=== PATIENT | male | born 1975 | race Caucasian/White ===

== ENCOUNTER 2016-06-23 16:11 | Emergency (ER) | payer SELFPAY ==
[~2016-06-23] VITALS: Ht 182.9 cm; Wt 97.5 kg
--- OUTSIDE RECORDS SUMMARY | 2016-06-23 16:15 | XMS REPORT ---
Author Author Randall Kovacs [facility] [address] [place] Address [address] [place], [place] [address] Care Team Providers Care Quilt Sewer Name Role Phone Randall Kovacs Unavailable [phone] PROBLEMS Type Condition ICD9-CM Code [id number] Code Onset Dates Condition Status SNOMED Code Problem Type 2 diabetes mellitus without complication, unspecified jail insulin use status E11.9 Active 691174852 Problem Tobacco abuse Z72.0 Active 35083624 Assessment Back pain M54.9 Apr, Active 178633347 Problem Polysubstance abuse F19.10 Active 492935315 Problem Back pain M54.9 Active 490951255 ALLERGIES Substance Reaction Event Type Date Status Reglan Unknown Drug Allergy Apr, Active SOCIAL HISTORY No smoking Hx information available PLAN OF CARE VITAL SIGNS Height 73.2 in 2016-04-06 Weight 207 lbs 2016-04-06 Temperature 98.7 degrees Fahrenheit 2016-04-06 Heart Rate 90 /min 2016-04-06 Respiratory Rate 16 /min 2016-04-06 BMI 27.16 kg/m2 2016-04-06 Blood pressure systolic 144 mm Hg 2016-04-06 Blood pressure diastolic 100 mm Hg 2016-04-06 MEDICATIONS Medication Instructions Dosage Frequency Start Date End Date Duration Status Zyprexa 10 MG Orally Once a day 1 tablet 24h Active Indomethacin 50 MG Orally Twice a day 1 capsule with food or milk 12h Mar, 30 day(s) Active BuSpar 10 MG Orally Twice a day 1 tablet 12h Active Metformin HCl 500 MG Orally Twice a day 1 tablet with meals h Apr, 30 day(s) Active Lortab 5-325 MG 2 tablet as needed Active RESULTS No Results PROCEDURES Procedure Date Ordered Related Diagnosis Body Site Office Visit, Est Pt., Level 4 April 06, 2016 IMMUNIZATIONS No Known Immunizations
--- OUTSIDE RECORDS SUMMARY | 2016-06-23 16:15 | XMS REPORT ---
Author Author Teodoro Mcclure Organization [employer] Address Unknown Phone Unavailable Care Team Providers Care Wind Instrument Repairer Name Role Phone Teodoro Mcclure CP Unavailable Allergies No Known Allergies Problems No Known Problems Medications No Known Medications Results No Known Results Summary Purpose [employer] Submission
--- OUTSIDE RECORDS SUMMARY | 2016-06-23 16:15 | XMS REPORT | Referral Summary ---
Author Author [facility] Organization [facility] Address Unknown Phone Unavailable Care Team Providers Care Drapery Cutter Name Role Phone No PCP, Pt States Primary Care Physician [phone] Encounter VC Date(s): 11/16/15 - 11/16/15 [facility] [address] [place], [place] [address] Discharge Diagnosis: HTN (hypertension) Discharge Diagnosis: Jaw fracture Discharge Diagnosis: Methamphetamine use Discharge Diagnosis: Jaw pain Discharge Disposition: 01-Home or Self Care Attending Physician: Jesus Peace MD Admitting Physician: Jesus Peace MD Vital Signs Most recent to 1 oldest [Reference Range]: Temperature Temporal 36.4 degC Artery [36.3-37.8 (11/16/15 9:21 PM) degC] Peripheral Pulse 112 bpm Rate [60-100 bpm] *HI* (11/16/15 9:21 PM) Respiratory Rate 14 br/min [14-20 br/min] (11/16/15 9:21 PM) Blood Pressure 162/117 mmHg [90-140/60-90 mmHg] *HI* (11/16/15 9:21 PM) SpO2 97 % (11/16/15 9:21 PM) Problem List Condition Effective Dates Status Health Status Informant Acute Active pain(Confirmed) At risk for unstable Active blood glucose level(Confirmed)1 Tendon Avulsion Rt 09/12/07 Active Little Finger DIP Joint(Confirmed)2 Bipolar(Confirmed) Active patient Bronchitis(Confirmed Active ) Diabetes(Confirmed) Active patient Hypertension(Confirm Active patient ed) Ineffective coping Active (individual)(Confirm ed)3 Mallet Finger Active Congiguration, Rt Little Finger(Confirmed) PTSD(Confirmed) Active patient 1Problem added automatically by system based on initiation of At Risk for Unstable Blood Glucose Plan of Care 2Home 3Problem added automatically by system based on initiation of Ineffective Coping Plan of Care Allergies, Adverse Reactions, Alerts Substance Reaction Severity Status Reglan Unknown Active Medications CeleXA 20 mg oral tablet 1 tabs, Oral, Daily, 0 Refill(s) Start Date: 10/17/13 Status: Ordered cephalexin 500 mg oral tablet 500 mg 1 tabs, Oral, QID, X 7 days, # 28 tabs, 0 Refill(s) Start Date: 11/16/15 Stop Date: 11/23/15 Status: Ordered ibuprofen 600 mg oral tablet 600 mg 1 tabs, Oral, QID, # 20 tabs, 0 Refill(s) Start Date: 11/16/15 Status: Ordered insulin lispro 10 units, SubCutaneous, TIDAC, 0 Refill(s) Start Date: 10/17/13 Status: Ordered lisinopril 10 mg oral tablet 1 tabs, Oral, Daily, 0 Refill(s) Start Date: 10/17/13 Status: Ordered lisinopril 20 mg oral tablet 20 mg 1 tabs, Oral, Daily, # 30 tabs, 0 Refill(s) Start Date: 11/16/15 Status: Ordered metFORMIN 500 mg oral tablet 2 tabs, Oral, With BKFT and Dinner, 0 Refill(s) Start Date: 10/17/13 Status: Ordered [place] 5 mg-325 mg oral tablet 1 tabs, Oral, q6hr, as needed for pain, X 4 days, # 16 tabs, 0 Refill(s) Start Date: 11/14/15 Stop Date: 11/18/15 Status: Ordered SEROquel 100 mg oral tablet 1 tabs, Oral, Bedtime (once a day), 0 Refill(s) Start Date: 10/17/13 Status: Ordered SEROquel 50 mg oral tablet 1 tabs, Oral, qAM, Agitation, 0 Refill(s) Start Date: 10/17/13 Status: Ordered Results Chemistry Most recent to 1 oldest [Reference Range]: Blood Glucose, 106 mg/dL Capillary [70-100 *HI* mg/dL] (11/16/15 9:27 PM) Immunizations No data available for this section Procedures Procedure Date Related Diagnosis Body Site L5-S1 Back Surgery 08/28/06 Hernia Hernia Lumbar spinal fusion Social History Social History Type Response Smoking Status Current every day smoker Assessment and Plan No data available for this section
--- OUTSIDE RECORDS SUMMARY | 2016-06-23 16:15 | XMS REPORT ---
Author Author Nayan Velazquez [facility] [place] Address [address] [place] [address] Care Team Providers Care Photo Lab Manager Name Role Phone Nayan Velazquez Unavailable [phone] PROBLEMS Type Condition ICD9-CM Code OPP93-RX Code Onset Dates Condition Status SNOMED Code Problem Tobacco abuse Z72.0 Active 36131535 Problem Polysubstance abuse F19.10 Active 963614178 Problem Back pain M54.9 Active 944715388 ALLERGIES Unknown Allergies SOCIAL HISTORY No smoking Hx information available PLAN OF CARE VITAL SIGNS MEDICATIONS Unknown Medications RESULTS No Results PROCEDURES No Known procedures IMMUNIZATIONS No Known Immunizations
--- OUTSIDE RECORDS SUMMARY | 2016-06-23 16:15 | XMS REPORT ---
Author Author Nayan Velazquez [facility] [place] Address [address] [place] [address] Care Team Providers Care Lead Data Entry Operator Name Role Phone Naayn Velazquez Unavailable [phone] PROBLEMS Type Condition ICD9-CM Code UQT29-BW Code Onset Dates Condition Status SNOMED Code Problem Tobacco abuse Z72.0 Active 40666740 Problem Polysubstance abuse F19.10 Active 216859138 Problem Back pain M54.9 Active 063830365 ALLERGIES Unknown Allergies SOCIAL HISTORY No smoking Hx information available PLAN OF CARE VITAL SIGNS MEDICATIONS Unknown Medications RESULTS No Results PROCEDURES No Known procedures IMMUNIZATIONS No Known Immunizations
--- OUTSIDE RECORDS SUMMARY | 2016-06-23 16:15 | XMS REPORT ---
Author Author Teodoro Mcclure Organization [employer] Address Unknown Phone Unavailable Care Team Providers Care Electric Blanket Packer Name Role Phone Teodoro Mcclure CP Unavailable Allergies No Known Allergies Problems No Known Problems Medications No Known Medications Results No Known Results Summary Purpose [employer]Clinical[employer] Submission
--- OUTSIDE RECORDS SUMMARY | 2016-06-23 16:16 | XMS REPORT ---
Author Author Nayan Velazquez [facility] [address] [place] Address [address] [place] [address] Care Team Providers Care General Road Supervisor Name Role Phone Nayan Velazquez Unavailable [phone] PROBLEMS Type Condition ICD9-CM Code PEE63-MV Code Onset Dates Condition Status SNOMED Code Problem Insomnia G47.00 Active 878120175 Problem Back pain M54.9 Active 416193041 Problem Hypertension I10 Active 54418599 Problem Depression F32.9 Active 039395542 Problem Lumbosacral disc disease M51.9 Active 73661330 Problem Bronchitis J40 Active 06017957 Problem Diabetes mellitus E11.9 Active 69764236 Problem Anxiety F41.9 Active 32677462 Problem Tobacco abuse Z72.0 Active 13468799 Problem Polysubstance abuse F19.10 Active 234438077 Problem Paranoia F22 Active 752495925 Problem Chronic gingivitis, 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
--- OUTSIDE RECORDS SUMMARY | 2016-06-23 16:16 | XMS REPORT | Referral Summary ---
Author Author [facility] Organization [facility] Address Unknown Phone Unavailable Care Team Providers Care Zinc Chloride Operator Name Role Phone No PCP, Pt States Primary Care Physician [phone] Encounter VC IGOR [id number] Date(s): 12/22/15 - 12/22/15 [facility] [address] [place] [address] Discharge Diagnosis: Contusion of left leg Discharge Disposition: 01-Home or Self Care Attending Physician: Gage Cisneros MD Admitting Physician: Gage Cisneros MD Vital Signs Most recent to 1 oldest [Reference Range]: Temperature Oral 36.8 degC [35.8-37.3 degC] (12/22/15 10:35 AM) Peripheral Pulse 109 bpm Rate [60-100 bpm] *HI* (12/22/15 12:14 PM) Respiratory Rate 20 br/min [14-20 br/min] (12/22/15 12:14 PM) Blood Pressure 156/115 mmHg [90-140/60-90 mmHg] *HI* (12/22/15 12:14 PM) SpO2 100 % (12/22/15 12:14 PM) Problem List Condition Effective Dates Status [...] 0 Refill(s) Start Date: 10/17/13 Status: Ordered ibuprofen 600 mg oral tablet 600 mg 1 tabs, Oral, QID, # 20 tabs, 0 Refill(s) Start Date: 11/16/15 Status: Ordered ibuprofen 800 mg oral tablet 800 mg 1 tabs, Oral, q8hr, as needed for pain, X 7 days, # 21 tabs, 0 Refill(s) Start Date: 12/22/15 Stop Date: 12/29/15 Status: Ordered insulin lispro 10 units, SubCutaneous, [...] Refill(s) Start Date: 10/17/13 Status: Ordered SEROquel 100 mg oral tablet 1 tabs, Oral, Bedtime (once a day), 0 Refill(s) Start Date: 10/17/13 Status: Ordered SEROquel 50 mg oral tablet 1 tabs, Oral, qAM, Agitation, 0 Refill(s) Start Date: 10/17/13 Status: Ordered Ultram 50 mg oral tablet 50 mg 1 tabs, Oral, q6hr, as needed for pain, X 5 days, # 12 tabs, 0 Refill(s) Start Date: 12/22/15 Stop Date: 12/27/15 Status: Ordered Results No data available for this section Immunizations No data available for this section Procedures Procedure Date Related Diagnosis Body Site L5-S1 Back Surgery 08/28/06 Hernia Hernia Lumbar spinal fusion Social History Social History Type Response Smoking Status Current every day smoker Assessment and Plan No data available for this section
--- OUTSIDE RECORDS SUMMARY | 2016-06-23 16:16 | XMS REPORT ---
Author Author Teodoro Mcclure Organization [employer] Address Unknown Phone Unavailable Care Team Providers Care Centralized Traffic Control Operator Name Role Phone Teodoro Mcclure CP Unavailable Allergies No Known Allergies Problems No Known Problems Medications No Known Medications Results No Known Results Summary Purpose [employer] Submission
--- OUTSIDE RECORDS SUMMARY | 2016-06-23 16:16 | XMS REPORT | Referral Summary ---
Author Author [facility] Organization [facility] Address Unknown Phone Unavailable Care Team Providers Care Adjunct Sociology Professor Name Role Phone No PCP, Pt States Primary Care Physician [phone] Encounter VC Date(s): 10/13/15 - 10/13/15 [facility] [address] [place], [place] [address] Discharge Diagnosis: Anxiety Discharge Diagnosis: Methamphetamine use Discharge Disposition: 01-Home or Self Care Attending Physician: Mayela Roman MD Admitting Physician: Mayela Roman MD Vital Signs Most recent to 1 oldest [Reference Range]: Temperature Oral 36.7 degC [35.8-37.3 degC] (10/13/15 11:33 AM) Peripheral Pulse 96 bpm Rate [60-100 bpm] (10/13/15 11:33 AM) Respiratory Rate 18 br/min [14-20 br/min] (10/13/15 11:33 AM) Blood Pressure 167/98 mmHg [90-140/60-90 mmHg] *HI* (10/13/15 11:33 AM) SpO2 96 % (10/13/15 11:33 AM) Problem List Condition Effective Dates Status Health [...] 0 Refill(s) Start Date: 10/17/13 Status: Ordered insulin lispro 10 units, SubCutaneous, TIDAC, 0 Refill(s) Start Date: 10/17/13 Status: Ordered lisinopril 10 mg oral tablet 1 tabs, Oral, Daily, 0 Refill(s) Start Date: 10/17/13 Status: Ordered metFORMIN 500 mg oral tablet 2 tabs, Oral, With BKFT and Dinner, 0 Refill(s) Start Date: 10/17/13 Status: Ordered SEROquel 100 mg oral tablet 1 tabs, Oral, Bedtime (once a day), 0 Refill(s) Start Date: 10/17/13 Status: Ordered SEROquel 50 mg oral tablet 1 tabs, Oral, qAM, Agitation, 0 Refill(s) Start Date: 10/17/13 Status: Ordered Results No data available for this section Immunizations No data available for this section Procedures Procedure Date Related Diagnosis Body Site L5-S1 Back Surgery 08/28/06 Hernia Hernia Lumbar spinal fusion Social History Social History Type Response Smoking Status Current every day smoker; Type: Cigarettes; Tobacco use per day: Less than Pack Assessment and Plan No data available for this section
--- OUTSIDE RECORDS SUMMARY | 2016-06-23 16:17 | XMS REPORT ---
Author Author Nayan Velazquez [facility] [place] Address [address] [place] [address] Care Team Providers Care Project Technician Name Role Phone Nayan Velazquez Unavailable [phone] PROBLEMS Type Condition ICD9-CM Code QBT35-FR Code Onset Dates Condition Status SNOMED Code Problem Tobacco abuse Z72.0 Active 83983024 Problem Polysubstance abuse F19.10 Active 792511815 Problem Back pain M54.9 Active 465196578 Assessment Back pain M54.9 Mar, Active 845659252 ALLERGIES Unknown Allergies SOCIAL HISTORY No smoking Hx information available PLAN OF CARE VITAL SIGNS MEDICATIONS Medication Instructions Dosage Frequency Start Date End Date Duration Status Lortab 5-325 MG 2 tablet as needed Active Clindamycin HCl 300 MG Orally every 8 hrs 1 capsule 8h Mar, 5 day(s) Active Amoxicillin 500 MG Orally Three a day 1 tablet Active Indomethacin 50 MG Orally Twice a day 1 capsule with food or milk 12h Mar, 30 day(s) Active Mobic 15 MG Orally Once a day 1 tablet 24h 30 days Active RESULTS No Results PROCEDURES No Known procedures IMMUNIZATIONS No Known Immunizations
--- OUTSIDE RECORDS SUMMARY | 2016-06-23 16:17 | XMS REPORT | Referral Summary ---
Author Organization Unknown Address Unknown Phone Unavailable Care Team Providers Care Transmission Tester Name Role Phone No PCP, [facility] Primary Care Physician [phone] Encounter VC Date(s): 03/11/14 - 03/11/[id number] [place] [address] Discharge Diagnosis: Exposure to STD Discharge Disposition: Home or Self Care Attending Physician: Jesus Peace MD Admitting Physician: Jesus Peace MD Vital Signs Most recent to 1 oldest [Reference Range]: Temperature Oral 37.2 degC [35.8-37.3 degC] (03/11/14 1:36 PM) Peripheral Pulse 92 bpm Rate [60-100 bpm] (03/11/14 2:11 PM) Respiratory Rate 20 br/min [14-20 br/min] (03/11/14 1:36 PM) Blood Pressure 138/102 mmHg [90-140/60-90 mmHg] (03/11/14 2:11 PM) Most recent to 1 oldest [Reference Range]: SpO2 97 % (03/11/14 1:36 PM) Problem List Condition Effective Dates Status Health Status Informant Acute Active pain(Confirmed) At risk for unstable Active blood glucose level(Confirmed)1 Bipolar(Confirmed) Active patient Diabetes(Confirmed) Active patient Hypertension(Confirm Active patient ed) Ineffective coping Active (individual)(Confirm ed)2 PTSD(Confirmed) Active patient 1Problem added automatically by system based on initiation of At Risk for Unstable Blood Glucose Plan of Care 2Problem added automatically by system based on initiation of Ineffective Coping Plan of Care Allergies, Adverse Reactions, Alerts No Known Medication Allergies Medications CeleXA 20 mg oral tablet 1 tabs, Oral, Daily, 0 Refill(s) Start Date: 10/17/13 Status: Ordered Flagyl 500 mg oral tablet 1 tabs, Oral, q8hr, X 7 days, # 21 tabs, 0 Refill(s) Start Date: 03/11/14 Stop Date: 03/18/14 Status: Ordered insulin lispro 10 units, SubCutaneous, [...] Procedures Procedure Date Related Diagnosis Body Site Hernia Lumbar spinal fusion Social History Social History Type Response Smoking Status Current every day smoker; Type: Cigarettes; Tobacco use per day: Less than Pack Assessment and Plan No data available for this section
--- OUTSIDE RECORDS SUMMARY | 2016-06-23 16:17 | XMS REPORT ---
Author Author Teodoro Mcclure Organization [employer] Address Unknown Phone Unavailable Care Team Providers Care Public Safety Officer Name Role Phone Teodoro Mcclure CP Unavailable Allergies No Known Allergies Problems No Known Problems Medications No Known Medications Results No Known Results Summary Purpose eClinicalWorks Submission
--- OUTSIDE RECORDS SUMMARY | 2016-06-23 16:17 | XMS REPORT ---
Author Author Nayan Velazquez [facility] [place] Address [address] [place] [address] Care Team Providers Care Residence Life Coordinator Name Role Phone Nayan Velazquez Unavailable [phone] PROBLEMS Type Condition ICD9-CM Code ZAT08-KI Code Onset Dates Condition Status SNOMED Code Problem Back pain M54.9 Active 662130885 Assessment Lumbago M54.5 Apr, Active 541007351 Problem Diabetes mellitus E11.9 Active 90506709 Problem Anxiety F41.9 Active 47025698 Problem Tobacco abuse Z72.0 Active 39472230 Problem Polysubstance abuse F19.10 Active 979948838 Problem Paranoia F22 Active 922040628 Problem Chronic gingivitis, 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 Active 893832622 ALLERGIES Substance Reaction Event Type Date Status Reglan Unknown Drug Allergy Apr, Active SOCIAL HISTORY No smoking Hx information available PLAN OF CARE VITAL SIGNS Height 73.2 in 2016-04-20 Weight 206 lbs 2016-04-20 Temperature 97.0 degrees Fahrenheit 2016-04-20 Heart Rate 70 /min 2016-04-20 Respiratory Rate 16 /min 2016-04-20 BMI 27.03 kg/m2 2016-04-20 Blood pressure systolic 134 mm Hg 2016-04-20 Blood pressure diastolic 80 mm Hg 2016-04-20 MEDICATIONS Medication Instructions Dosage Frequency Start Date End Date Duration Status Indomethacin 50 MG Orally Twice a day 1 capsule with food or milk 12h Mar, 30 day(s) Active BuSpar 10 MG Orally Twice a day 1 tablet 12h 90 days Active Metformin HCl 500 MG Orally Twice a day 1 tablet with meals 12h Apr, 90 days Active Zyprexa 10 MG Orally Once a day 1 tablet 24h Active RESULTS No Results PROCEDURES Procedure Date Ordered Related Diagnosis Body Site Office Visit, Est Pt., Level 4 April 20, 2016 IMMUNIZATIONS No Known Immunizations
--- OUTSIDE RECORDS SUMMARY | 2016-06-23 16:17 | XMS REPORT | Referral Summary ---
Author Author [facility] Organization [facility] Address Unknown Phone Unavailable Care Team Providers Care Hand Clipper Name Role Phone No PCP, Pt States Primary Care Physician [phone] Encounter VC Date(s): 06/01/15 - 06/01/15 [facility] [address] [place], [place] [address] Discharge Diagnosis: Depression Discharge Diagnosis: Methamphetamine abuse Discharge Diagnosis: Suicidal thoughts Discharge Disposition: 01-Home or Self Care Attending Physician: Issa Bolaños MD Admitting Physician: Issa Bolaños MD Vital Signs Most recent to 1 oldest [Reference Range]: Temperature Oral 36.7 degC [35.8-37.3 degC] (06/01/15 3:21 AM) Peripheral Pulse 95 bpm Rate [60-100 bpm] (06/01/15 3:21 AM) Respiratory Rate 16 br/min [14-20 br/min] (06/01/15 3:21 AM) Blood Pressure 164/118 mmHg [90-140/60-90 mmHg] *HI* (06/01/15 3:21 AM) SpO2 97 % (06/01/15 3:21 AM) Problem List Condition Effective Dates Status [...]
--- OUTSIDE RECORDS SUMMARY | 2016-06-23 16:17 | XMS REPORT | Referral Summary ---
Author Author [facility] Organization [facility] Address Unknown Phone Unavailable Care Team Providers Care Junior Architect Name Role Phone No PCP, Pt States Primary Care Physician [phone] Encounter VC Date(s): 11/14/15 - 11/14/15 [facility] [address] [place] [address] [phone] Discharge Diagnosis: Jaw pain Discharge Disposition: 01-Home or Self Care Attending Physician: Gage Cisneros MD Admitting Physician: Gage Cisneros MD Vital Signs Most recent to 1 oldest [Reference Range]: Temperature Temporal 36.3 degC Artery [36.3-37.8 (11/14/15 2:57 PM) degC] Peripheral Pulse 102 bpm Rate [60-100 bpm] *HI* (11/14/15 4:11 PM) Respiratory Rate 16 br/min [14-20 br/min] (11/14/15 4:11 PM) Blood Pressure 164/116 mmHg [90-140/60-90 mmHg] *HI* (11/14/15 4:11 PM) SpO2 98 % (11/14/15 4:11 PM) Problem List Condition Effective Dates Status [...] 0 Refill(s) Start Date: 10/17/13 Status: Ordered [place] 5 mg-325 mg oral tablet 1 tabs, [...]
[2016-06-23 16:20] VITALS: Ht 182.9 cm; Wt 97.5 kg
[2016-06-23] MEDS ORDERED: CLIN300C3 PO (16:41)
[2016-06-23] MEDS ORDERED: NAPR220T61 PO (16:42)
[2016-06-23] MEDS ORDERED: METF500T4 PO (16:43)
[2016-06-23] MEDS ORDERED: PALI117D IM (16:44)
[2016-06-23] MEDS ORDERED: RISP2TAB PO (16:45)
[2016-06-23] MEDS ORDERED: MULT-933 PO (16:45)
--- NOTE | 2016-06-23 16:53 | ERPDOC ---
Departure Disposition Decision Date: June 23, 2016 Disposition Decision Time: 16:50 Disposition: 01 DISCHARGED HOME, SELF-CARE Impression Impression Impression: Primary Impression: URI (upper respiratory infection) URI type: unspecified viral URI Qualified Codes: B97.89 - Other viral agents as the cause of diseases classified elsewhere; J06.9 - Acute upper respiratory infection, unspecified Additional Impressions: Hypertension Hypertension type: essential hypertension Qualified Codes: I10 - Essential ( primary) hypertension Headache Headache type: tension-type Headache chronicity pattern: acute headache Intractability: intractable Qualified Codes: G44.201 - Tension-type headache , unspecified, intractable Severity: Moderate Condition: Improved Seen By: Physician only Referrals: [facility] 1 Week Patient Instructions: Upper Respiratory Infection (ED) Problems/Meds/Labs Reviewed?: Yes Medications reviewed and manag: Yes Additional Instructions: You have an upper respiratory infection (a cold). Use the Afrin twice daily for the next 3 days to help your ears drain. Take dayquil and nyquil (or benadryl, 50mg at bedtime) to help with your symptoms. Drink plenty of water. Take the lisinopril as directed. Follow up with your doctor or [facility] in the next week or so. Follow up care ordered?: Yes Mental Status: Alert, Oriented Scripts Lisinopril (Lisinopril) 40 Mg Tablet 40 MG PO DAILY for HYPERTENSION for 30 Days, #30 TAB Prov: JUNE,CLAUDIO Thomas DO 06/23/16 HPI - Cough/URI General Chief Complaint: Headache Stated Complaint: BAD HEADACHE,STABBING FEELING LEFT EAR Time Seen by Provider: 16:42 Source: patient Exam Limitations: no limitations HPI - Cough/URI Initial Comments 40yo man presents to the ER with a MARIE. Pt had abrupt onset of rhinorrhea, congestion, and b/l ear pain 3 hours ago. Pt took some naproxen with minimal relief, but the MARIE came on shortly thereafter. Pt has been taking clindamycin for the last week for a dental abscess; is under the care of a dentist for this. Requests refill of his lisinopril 40mg for HTN. Allergies: Coded Allergies: metoclopramide (Verified Allergy, Unknown, 06/23/16) Past History Past Medical History Metabolic: diabetes, hypertension Psychological: alcohol abuse, drug abuse Review of Systems ENMT Ears: pain Sinuses: congestion, rhinorrhea Mouth/Throat: sore throat Pulmonary Respiratory: cough Neurological General: headache All other Systems All Other Systems: Reviewed and Negative Physical Exam General General Nourishment: well nourished, well developed, appears stated age, no acute distress, adult General Body Habitus: well groomed Vitals and Pain First Documented Vital Signs Date Time Temp Pulse Resp B/P Pulse Ox O2 Delivery O2 Flow Rate FiO2 06/23/16 16:20 98.3 97 18 158/99 95 Room Air Weight: Kilograms: Height (feet): Height (inches): Triage Pain Scale: RN VS reviewed by Provider: Yes Eyes (brief) Eyes Brief: found: EOMI, PERRL, not found: scleral icterus ENMT (brief) ENMT Brief: FOUND: TM good light reflex, ear canals clear, mucosa moist, nasal exudate, normal tonsils, pharnyx erythema, NOT FOUND: TM clear (B/l bulging with clear fluid) Neck (brief) Neck: FOUND: adenopathy (Anterior left auricular), trachea midline, NOT FOUND: JVD, thyromegaly Respiratory (brief) Respiratory: FOUND: clear all esquivel, equal bilaterally, symmetrical, NOT FOUND : rales, wheezes Cardiovascular (brief) Cardiac: FOUND: regular rate, regular rhythm, NOT FOUND: click, gallop, murmur , pedal edema, peripheral edema, rub Capillary Refill: <2 sec Pulses: all distal extremities, equal, strong Lymphatic (brief) Lymphatic Brief: FOUND: adenopathy, NOT FOUND: lymphedema Musculoskeletal (brief) Musculoskeletal Brief: NOT FOUND: deformity, loss of motion, spasm, tenderness Integumentary (brief) Integumentary Brief: FOUND: pink, warm Neurologic (brief) Neurological Brief: FOUND: CN w/o gross def to obs, DTR 2/4 all extremities, gait w/o gross def to obs, motor-no gross deficits, sensory-no gross deficits, NOT FOUND: Babinski Psychiatric (brief) Psychiatric Brief: FOUND: alert, normal affect, oriented Differential Diagnoses Differential Diagnoses Considering: Mastoiditis, Pharyngitis, Sinusitis, URI, Viral Syndrome, Other ( Migraine MARIE) Progress Results/Orders Orders Procedure Category Date Status Time Oxymetazoline Nasal PHA 06/23/16 In Process [place] (Afrin Nasal S 17:00 Medications Current ED Medications Oxymetazoline HCl (Afrin Nasal [place]) 2 spray O ONCE EA NOSTRIL ; Start at 17:00; Stop 06/23/16 at 17:01 Progress Progress Pt with new-onset URI sx and bulging TMs with clear fluid. Will treat to decrease upper airway congestion to encourage drainage. Will give recommendations for symptomatic relief. Will refill pts HTN meds, as requested. Pt to f/u with PCM as outpt. Pt voiced understanding of dx, prognosis, tx, and f /u needs. CLAUDIO THOMPSON DO June 23, 2016 16:53
[2016-06-23] MEDS ORDERED: LISI40TA4 PO (16:56)
[2016-06-23] MEDS ORDERED: OXYMETAZOLINE 0.05% NASAL SPRAY 15 ML EA NOSTRIL ONE (17:00)
[2016-06-23 17:10] VITALS: BP 141/82; PULSE 84; RESP 14; TEMP 98.3; O2SAT 97
== END 2016-06-23 17:10 | disposition home or self-care (01) ==
LOC: ED 16:11
DX: J06.9 Acute upper respiratory infection, unspecified (principal); B97.89 Other viral agents as the cause of diseases classified elsewhere; G44.201 Tension-type headache, unspecified, intractable; I10 Essential (primary) hypertension; F17.200 Nicotine dependence, unspecified, uncomplicated

== ENCOUNTER 2016-08-05 13:02 | Inpatient (IN) ==
[2016-08-05] MEDS ORDERED: SALINE FLUSH 10ml SYRINGE IVF PRN (13:11)
[2016-08-05] MEDS ORDERED: ONDANSETRON 4 MG/2 ML INJECTION IVP ONE (14:12)
--- NOTE | 2016-08-05 14:15 | Emergency Department Report ---
Psych HPI - General Chief Complaint: Psychiatric Symptoms <Randall Ibanez - 08/06/16 06:18> Stated Complaint: Suicidal Ideation <Randall Ibanez - 08/06/16 06:18> Time Seen by Provider: 08/05/16 13:05 <Randall Ibanez - 08/06/16 06:18> Source: patient <Alexandra Sewell 08/05/16 20:43> Mode of arrival: EMS <Alexandra Sewell [place] 08/05/16 20:43> Limitations: no limitations <Alexandra Sewell [place] 08/05/16 20:43> - History of Present Illness HPI Narrative: 40 YO M brought to ED by EMS for overdose of metformin. Patient says he took 34, 1000mg tabs of metformin with intent to kill himself. Patient was given activated charcoal by EMS prior to arrival. Patient states that "everything has been going on in his life" and he wanted to ". Sites marital problems. Previous overdose with intent to kill himself earlier this year. Says that he "really has gotten any better" since earlier attempt. Patient reports a frontal headache with sinus congestion and drainage for past 3 -4 days. <Alexandra Sewell [place] 08/05/16 20:43> - Related Data Home Medications Medication Instructions Recorded Confirmed Metformin HCl 1,000 mg PO BIDWM #0 06/23/16 08/05/16 Lisinopril 40 mg PO HS 07/07/16 08/05/16 Paliperidone Sustenna [Invega 234 mg IM 1 MONTH 07/10/16 08/05/16 Sustenna] Acetaminophen 650 mg PO PRN 08/05/16 08/05/16 Insulin Detemir [Levemir] 20 unit SQ HS 08/05/16 08/05/16 <Randall Ibanez - 08/06/16 06:18> Allergies Allergy/AdvReac Type Severity Reaction Status Date / Time metoclopramide Allergy Unknown Anxiety Verified 08/05/16 16:20 <aRndall Ibanez - 08/06/16 06:18> Review of Systems All systems: reviewed and negative except as stated <DonatoAlexadnra A 20:43> Psychiatric: Reports: as per HPI, depression, suicidal thoughts <Alexandra Sewell 08/05/16 20:43> [facility] Patient Stated Medical History Migraine Yes Hypertension Yes Diabetes Mellitus Type 2 Yes Hiatal Hernia Yes Ulcer Yes Other Musculoskeletal Yes: DEGENERATIVE DISC DISEASE Bipolar Disorder Yes Depression Yes Post Traumatic Stress Disorder Yes Substance Use Disorder Yes: MARIJUANA, METH HX <Ira Ibanezk Joni 08/06/16 06:18> Surgical History: Surgery on jaw. Right hand. Low back surgery <Sewell Alexandra 08/05/16 14:15> Family History: Noncontributory <DonatoAlexandra 08/05/16 20:43> - Social History Smoking status: Current every day smoker <SewellAlexandra 08/05/16 14:15> Physical Exam - Limitations Limitations: no limitations <DonatoAlexandra 08/05/16 20:43> - General General appearance: alert <DonatoAlexandra 08/05/16 20:43> - Normal Exams: Head:: Normocephalic without trauma <DonatoAlexandra 08/05/16 20:43> Eyes:: Pupils are PERRLA w/ EOMI, No scleral icterus, irritation <Sewell Alexandra 08/05/16 20:43> ENMT:: No facial trauma <DonatoAlexandra 08/05/16 20:43> Neck:: Full range of motion, without adenopathy <Alexandra Sewell 08/05/16 20:43> Chest/Respirations:: Clear all esquivel, with good airflow, and symmetry bilaterally <DonatoAlexandra 08/05/16 20:43> Cardiovascular:: Regular rate and rhythm (94BPM) <Alexandra Sewell 08/05/16 20:43> Abdomen:: Bowel sounds positive, soft, non-tender, non-distended, no hepatosplenomegaly <DonatoAlexandra 08/05/16 20:43> Musculoskeletal:: No tenderness, or deformity noted, good range of motion, all extremities <Alexandra Sewell 08/05/16 20:43> Integumentary:: No rashes <Alexandra Sewell 08/05/16 20:43> Neurological:: Patient is alert, and oriented <Alexandra Sewell 08/05/16 20: 43> Psychiatric:: Patient exhibits, appropriate attention <Alexandra Sewell A - 02/21 20:43> - Psychiatric Psychiatric exam: Present: depressed, anxious <Alexandra Sewell 08/05/16 20: 43> Course - Consultations Consultation #1: I discussed patient's HPI, past medical history, vital signs, and exam findings with Dr. Lopez. Dr. Lopez will admit patient for observation to the ICU due to overdose of metformin. <Mireya Sewellestela Golden - 08/05/16 23:54> Vital Signs Temperature 98.2 F 08/05/16 13:05 Pulse Rate 102 H 08/05/16 13:05 Respiratory Rate 22 08/05/16 13:05 Blood Pressure 123/70 08/05/16 13:05 Pulse Oximetry 95 08/05/16 13:05 Temperature 98.4 F 08/05/16 15:04 Pulse Rate 72 08/06/16 06:00 Respiratory Rate 17 08/06/16 06:00 Blood Pressure 99/66 08/06/16 06:00 Pulse Oximetry 97 08/06/16 06:00 <Randall Ibanez - 08/06/16 06:18> Psych - MDM Narrative Medical decision making narrative: Poison control was called, ER was instructed to monitor patient's chemistries and lactate every 2 hours for of 6-12 hours and obtain an initial ABG. Patient was admitted to the ICU for overnight observation. Patient should be screen for psychiatric admission after cleared medically. <Alexandra Sewell - 08/05/16 23:54> - Differential Diagnosis Likely: acute psychosis, suicidal ideation, bipolar disorder, depression, drug- induced psychotic disorder <Alexandra Sewell [place] Nicole 08/05/16 20:43> - Medical Records Attestation: I reviewed the patient's medical records. <Alexandra Sewell [place] 02/21 20:43> - Lab Data Attestation: I reviewed the patient's lab results. <Alexandra Sewell [place] Nicole 20:43> Result diagrams: 08/06/16 04:21 08/06/16 04:21 <Randall Ibanez - 08/06/16 06:18> Lab Results 08/05/16 08/05/16 08/05/16 Range/Units 12:48 12:48 13:10 WBC 3.9 L (4.5-11.0) T/MM3 RBC 5.37 (4.50-5.90) M/MM3 Hgb 16.9 (13.5-17.5) GM/DL Hct 47.8 (41-53) % MCV 89.0 (80-100) UM3 MCH 31.5 (26-34) UUG MCHC 35.4 (31-37) GM/DL RDW Std Deviation 39.4 (36.9-50.2) FL Plt Count 134 (130-400) T/MM3 MPV 10.9 (9.4-12.4) UM3 Immature Gran % (Auto) 0.3 (0.0-0.5) % Neut % (Auto) 66.0 (33-66) % Lymph % (Auto) 21.3 L (23-45) % Grady % (Auto) 9.3 H (0-9.0) % Eos % (Auto) 2.6 (0-4) % Baso % (Auto) 0.5 (0-2) % Neut # 2.6 (1.8-7.7) T/MM3 Lymph # 0.8 L (1-4.8) T/MM3 Grady # 0.4 (0-0.8) T/MM3 Eos # 0.1 (0-0.5) T/MM3 Baso # 0.0 (0-0.2) T/MM3 Abs Immat Gran (auto) 0.01 (0.00-0.03) T/MM3 ABG pH (7.350-7.450) ABG pCO2 (34-45) MMHG ABG pO2 (80-100) MMHG ABG HCO3 (22-26) MEQ/L ABG Total CO2 (23-27) MEQ/L ABG O2 Saturation (95.0-98.0) % ABG Base Excess (-2.0-2.0) MMOL/L O2 Delivery Method Turbidity < 20 (0-20) Sodium 136 (134-144) MEQ/L Potassium 4.2 (3.6-5) MEQ/L Chloride 104 (98-107) MEQ/L Carbon Dioxide 22 (22-30) MEQ/L Anion Gap 10 (5-15) MEQ/L BUN 19.0 (9-20) MG/DL Creatinine 0.9 (0.8-1.5) MG/DL GFR Calculation 93 BUN/Creatinine Ratio 21 (6-26) RATIO Glucose 309 H (75-110) MG/DL Glucometer 241 (65-110) mg/dL Calculated Osmolality 276 (261-280) MOSM/KG Calcium 9.5 (8.4-10.2) MG/DL Total Bilirubin 1.10 (0.20-1.30) MG/DL Icterus Index < 2 (0-7) AST 25 (17-59) U/L ALT 45 (21-72) U/L Alkaline Phosphatase 72 (38-126) U/L Total Protein 7.4 (6.3-8.2) G/DL Albumin 5.0 (3.5-5.0) G/DL Globulin 2.4 (2.4-3.6) G/DL Albumin/Globulin Ratio 2.1 (1.1-2.2) RATIO Plasma Lactate 2.4 H (0.6-2.2) MMOL/L Specimen Hemolysis < 15 (0-25) Ur Collection Type Urine Color (YELLOW) Urine Clarity Urine pH (5.0-8.0) Ur Specific [place] (1.015-1.025) Urine Protein (NEGATIVE) Urine Glucose (UA) (NEGATIVE) Urine Ketones (NEGATIVE) Urine Occult Blood (NEGATIVE) Urine Nitrate (NEGATIVE) Urine Bilirubin (NEGATIVE) Urine Urobilinogen (NORMAL) EU/DL Ur Leukocyte Esterase (NEGATIVE) Urinalysis Comment Salicylates < 1.0 L (2-20) MG/DL Urine Opiates Screen ng/mL Ur Oxycodone Screen ng/mL Urine Methadone Screen ng/mL Ur Propoxyphene Screen ng/mL Acetaminophen < 10 L (10-30) UG/ML Ur Barbiturates Screen ng/mL U Tricyclic Antidepress ng/mL Ur Phencyclidine Scrn ng/mL Ur Amphetamines Screen ng/mL U Methamphetamines Scrn ng/mL U Benzodiazepines Scrn ng/mL Urine Cocaine Screen ng/mL U Cannabinoids Screen ng/mL Ur Drug Screen Confirm 08/05/16 08/05/16 08/05/16 Range/Units 13:45 13:47 13:47 WBC (4.5-11.0) T/MM3 RBC (4.50-5.90) M/MM3 Hgb (13.5-17.5) GM/DL Hct (41-53) % MCV (80-100) UM3 MCH (26-34) UUG MCHC (31-37) GM/DL RDW Std Deviation (36.9-50.2) FL Plt Count (130-400) T/MM3 MPV (9.4-12.4) UM3 Immature Gran % (Auto) (0.0-0.5) % Neut % (Auto) (33-66) % Lymph % (Auto) (23-45) % [place]ady % (Auto) (0-9.0) % Eos % (Auto) (0-4) % Baso % (Auto) (0-2) % Neut # (1.8-7.7) T/MM3 Lymph # (1-4.8) T/MM3 [place]ady # (0-0.8) T/MM3 Eos # (0-0.5) T/MM3 Baso # (0-0.2) T/MM3 Abs Immat Gran (auto) (0.00-0.03) T/MM3 ABG pH (7.350-7.450) ABG pCO2 (34-45) MMHG ABG pO2 (80-100) MMHG ABG HCO3 (22-26) MEQ/L ABG Total CO2 (23-27) MEQ/L ABG O2 Saturation (95.0-98.0) % ABG Base Excess (-2.0-2.0) MMOL/L O2 Delivery Method Turbidity (0-20) Sodium (134-144) MEQ/L Potassium (3.6-5) MEQ/L Chloride (98-107) MEQ/L Carbon Dioxide (22-30) MEQ/L Anion Gap (5-15) MEQ/L BUN (9-20) MG/DL Creatinine (0.8-1.5) MG/DL GFR Calculation BUN/Creatinine Ratio (6-26) RATIO Glucose (75-110) MG/DL Glucometer 232 (65-110) mg/dL Calculated Osmolality (261-280) MOSM/KG Calcium (8.4-10.2) MG/DL Total Bilirubin (0.20-1.30) MG/DL Icterus Index (0-7) AST (17-59) U/L ALT (21-72) U/L Alkaline Phosphatase (38-126) U/L Total Protein (6.3-8.2) G/DL Albumin (3.5-5.0) G/DL Globulin (2.4-3.6) G/DL Albumin/Globulin Ratio (1.1-2.2) RATIO Plasma Lactate (0.6-2.2) MMOL/L Specimen Hemolysis (0-25) Ur Collection Type Urine, clean catch Urine Color Yellow (YELLOW) Urine Clarity Clear Urine pH 5.5 (5.0-8.0) Ur Specific [place] 1.025 (1.015-1.025) Urine Protein Negative (NEGATIVE) Urine Glucose (UA) 3+ A (NEGATIVE) Urine Ketones Negative (NEGATIVE) Urine Occult Blood Negative (NEGATIVE) Urine Nitrate Negative (NEGATIVE) Urine Bilirubin Negative (NEGATIVE) Urine Urobilinogen 0.2 (NORMAL) EU/DL Ur Leukocyte Esterase Negative (NEGATIVE) Urinalysis Comment Microscopic not ind. Salicylates (2-20) MG/DL Urine Opiates Screen Negative ng/mL Ur Oxycodone Screen Negative ng/mL Urine Methadone Screen Negative ng/mL Ur Propoxyphene Screen Negative ng/mL Acetaminophen (10-30) UG/ML Ur Barbiturates Screen Negative ng/mL U Tricyclic Antidepress Negative ng/mL Ur Phencyclidine Scrn Negative ng/mL Ur Amphetamines Screen Positive ng/mL U Methamphetamines Scrn Positive ng/mL U Benzodiazepines Scrn Negative ng/mL Urine Cocaine Screen Negative ng/mL U Cannabinoids Screen Positive ng/mL Ur Drug Screen Confirm 08/05/16 08/05/16 Range/Units 13:47 14:25 WBC (4.5-11.0) T/MM3 RBC (4.50-5.90) M/MM3 Hgb (13.5-17.5) GM/DL Hct (41-53) % MCV (80-100) UM3 MCH (26-34) UUG MCHC (31-37) GM/DL RDW Std Deviation (36.9-50.2) FL Plt Count (130-400) T/MM3 MPV (9.4-12.4) UM3 Immature Gran % (Auto) (0.0-0.5) % Neut % (Auto) (33-66) % Lymph % (Auto) (23-45) % [place]ady % (Auto) (0-9.0) % Eos % (Auto) (0-4) % Baso % (Auto) (0-2) % Neut # (1.8-7.7) T/MM3 Lymph # (1-4.8) T/MM3 [place] # (0-0.8) T/MM3 Eos # (0-0.5) T/MM3 Baso # (0-0.2) T/MM3 Abs Immat Gran (auto) (0.00-0.03) T/MM3 ABG pH 7.330 L (7.350-7.450) ABG pCO2 40 (34-45) MMHG ABG pO2 79 L (80-100) MMHG ABG HCO3 21 L (22-26) MEQ/L ABG Total CO2 22.3 L (23-27) MEQ/L ABG O2 Saturation 95.0 (95.0-98.0) % ABG Base Excess -4.5 L (-2.0-2.0) MMOL/L O2 Delivery Method Room air Turbidity (0-20) Sodium (134-144) MEQ/L Potassium (3.6-5) MEQ/L Chloride (98-107) MEQ/L Carbon Dioxide (22-30) MEQ/L Anion Gap (5-15) MEQ/L BUN (9-20) MG/DL Creatinine (0.8-1.5) MG/DL GFR Calculation BUN/Creatinine Ratio (6-26) RATIO Glucose (75-110) MG/DL Glucometer (65-110) mg/dL Calculated Osmolality (261-280) MOSM/KG Calcium (8.4-10.2) MG/DL Total Bilirubin (0.20-1.30) MG/DL Icterus Index (0-7) AST (17-59) U/L ALT (21-72) U/L Alkaline Phosphatase (38-126) U/L Total Protein (6.3-8.2) G/DL Albumin (3.5-5.0) G/DL Globulin (2.4-3.6) G/DL Albumin/Globulin Ratio (1.1-2.2) RATIO Plasma Lactate (0.6-2.2) MMOL/L Specimen Hemolysis (0-25) Ur Collection Type Urine Color (YELLOW) Urine Clarity Urine pH (5.0-8.0) Ur Specific [place] (1.015-1.025) Urine Protein (NEGATIVE) Urine Glucose (UA) (NEGATIVE) Urine Ketones (NEGATIVE) Urine Occult Blood (NEGATIVE) Urine Nitrate (NEGATIVE) Urine Bilirubin (NEGATIVE) Urine Urobilinogen (NORMAL) EU/DL Ur Leukocyte Esterase (NEGATIVE) Urinalysis Comment Salicylates (2-20) MG/DL Urine Opiates Screen ng/mL Ur Oxycodone Screen ng/mL Urine Methadone Screen ng/mL Ur Propoxyphene Screen ng/mL Acetaminophen (10-30) UG/ML Ur Barbiturates Screen ng/mL U Tricyclic Antidepress ng/mL Ur Phencyclidine Scrn ng/mL Ur Amphetamines Screen ng/mL U Methamphetamines Scrn ng/mL U Benzodiazepines Scrn ng/mL Urine Cocaine Screen ng/mL U Cannabinoids Screen ng/mL Ur Drug Screen Confirm Sent out <Randall Ibanez 08/06/16 06:18> Disposition Clinical Impression: Suicidal intent Overdose Qualifiers: Encounter type: initial encounter Injury intent: intentional self-harm Qualified Code(s): T50.902A - Poisoning by unspecified drugs, medicaments and biological substances, intentional self-harm, initial encounter <Randall Ibanez 08/06/16 06:18> Disposition: 02 To [facility] <Randall Ibanez 08/06/16 06:18> Condition: Stable <Randall Ibanez 08/06/16 06:18> Instructions: <Randall Ibanez 08/06/16 06:18> Prescriptions: No Action Paliperidone Sustenna [Invega Sustenna] 234 mg IM 1 MONTH Acetaminophen 650 mg PO PRN Metformin HCl 1,000 mg PO BIDWM #0 Lisinopril 40 mg PO HS Insulin Detemir [Levemir] 20 unit SQ HS <Randall Ibanez 08/06/16 06:18> Referrals: [facility] [Other] <Randall Ibanez 08/06/16 06:18> Forms: <Randall Ibanez 08/06/16 06:18> - Seen By: midlevel <Alexandra Sewell - 08/05/16 15:13>
[2016-08-05] MEDS ORDERED: DEXTROSE 50% SYRINGE 50ml (1 AMP) IVP PRN (14:25)
--- NOTE | 2016-08-05 14:41 | History & Physical Report ---
<Camryn Bergman V - Last Filed: 08/05/16 14:33> History of Present Illness Date: 08/05/16 Chief complaint: intentional metformin overdose HPI: Henrry is a 40-year-old male who was brought to the emergency room by EMS today for acute evaluation following an intentional overdose of metformin. Patient has had a history of depression with suicide attempt in the past. In May he took an entire bottle of BuSpar and was managed in the outpatient setting. He reports since that time his mental health, has not improved because he "Bull shitted" his way through therapy. He describes having increased stress with his marriage and elastic situation. Today he decided to Intentionally take 34 tablets of metformin 1000 milligrams each at approximately 1230. In the emergency room further evaluation was completed. WBC count 3.9, RBCs 5.37 , hemoglobin 16.9, hematocrit 47.8, platelet count 134. Sodium is 136, potassium 4.2, BUN 19, creatinine 0.9. Initial BGM is 309 and recheck BGM at 1345 was 232. ABG did reveal a pH of 7.330, pCO2 40, pO2 79, bicarbonate 21. A urinalysis was obtained showing 3+ glucose, otherwise unremarkable. Urine drug screen is positive for amphetamines, methamphetamines and marijuana. Salicylate , acetaminophen are negative. Given the intentional overdose, accompanied with risk of side effects of metformin overdose. The hospitalist services were contacted and accepted patient for outpatient admission for further evaluation and treatment. Review of Systems All systems: reviewed and no additional remarkable complaints except as stated - Gastrointestinal Gastrointestinal: Present: nausea - Neurological Neurological Comments: Headache PFSH Patient Stated Medical History Diabetes Mellitus Type 2 Migraine Hypertension Hiatal Hernia Ulcer Degenerative disc disease Bipolar Disorder Depression Post Traumatic Stress Disorder History of suicide attempt Poly-substance abuse-marijuana, methamphetamine Surgical History: Mandible surgery. Right hand surgery. 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 Alcohol intake frequency: a few times a week Housing: apartment Household members: friend(s) Does patient use chewing tobacco?: No Current residence: Apartment/Private Home Social history: PCP Dr Nayan Velazquez Medications Home Medications Medication Instructions Recorded Confirmed Type Metformin HCl 1,000 mg PO BIDWM #0 06/23/16 08/05/16 History Lisinopril 40 mg PO HS 07/07/16 08/05/16 History Paliperidone Sustenna [Invega 234 mg IM 1 MONTH 07/10/16 08/05/16 History Sustenna] Acetaminophen 650 mg PO PRN 08/05/16 08/05/16 History Insulin Detemir [Levemir] 20 unit SQ HS 08/05/16 08/05/16 History Allergies Allergy/AdvReac Type Severity Reaction Status Date / Time metoclopramide Allergy Unknown Anxiety Verified 08/05/16 16:20 Exam Vital Signs: Temperature 98.2 F 08/05/16 13:05 Pulse Rate 102 H 08/05/16 13:05 Respiratory Rate 22 08/05/16 13:05 Blood Pressure 123/70 08/05/16 13:05 Pulse Oximetry 95 08/05/16 13:05 Oxygen Delivery Method Room Air Height: 1.83 m Weight: 92.6 kg - Constitutional Present: no acute distress, agitated - Routine HEENT Exam Head: Present: normocephalic, atraumatic Eye: Present: EOMI, PERRL ENT: Present: mucous membranes moist - Routine Neck Exam Present: supple, full ROM - Routine Respiratory Exam Present: CTA bilaterally - Routine Cardiovascular Exam Present: RRR, S1, S2 - Routine Abdominal Exam Present: soft, normoactive bowel sounds, non distended, non tender - Routine Extremities Exam Present: full ROM - Routine Back/Spine/Pelvis Exam Back/Spine: Present: full ROM - Routine Skin Exam Present: intact, dry, warm - Routine Neurological Exam Present: alert, oriented X3, CN II-XII intact - Routine Psychiatric Exam Present: suicidal ideation, depressed, agitated. Absent: good insight, good judgment Results - Labs CBC & Chem 7: 08/05/16 12:48 08/05/16 12:48 - ABG Interpretation ABG results: 08/05/16 14:25 ABG pH 7.330 L ABG pCO2 40 ABG pO2 79 L ABG HCO3 21 L ABG Total CO2 22.3 L ABG O2 Saturation 95.0 ABG Base Excess -4.5 L Assessment and Plan (1) Intentional overdose of drug in tablet form Current visit: Yes Status: Acute (2) Suicide attempt by drug ingestion Current visit: Yes Status: Acute (3) Type II diabetes mellitus Current visit: Yes Status: Chronic (4) Hypertension Current visit: Yes Status: Chronic (5) Bipolar 1 disorder Current visit: Yes Status: Chronic (6) PTSD (post-traumatic stress disorder) Current visit: Yes Status: Chronic DVT Prophylaxis: SCD's Assessment and Plan: Admit patient to outpatient observation to the ICU under the care of Dr. Lopez for intentional overdose, suicide attempt. Patient on suicide precautions. Monitor patient on cardiac telemetry. Will monitor Accu-Cheks every hour. Will obtain serial BMP and ABGs to monitor for acidosis. Next scheduled lab draw at 1600 Start patient on D5 normal saline at 100 ML per hour for ongoing hydration and additional dextrose supplementation. An amp of D50 is available as needed for acute hypoglycemia This patient on a carb consistent diet. Hold metformin and Levemir currently. Zofran available as needed for nausea. Protonix 40 mg IV daily for GI protection SCDs to bilateral lower extremity for DVT prophylaxis Johnson acidosis compensation predictor formula indicates, expected CO2 compensation will be 38-42. Will monitor carefully. Will hold patient overnight and monitor him carefully. Once he is medically stable, we will be able to contact per review to have a psychiatric screen completed. Patient does verbalize that he needs help and recognizes that if he is discharged, he will likely attempt suicide again. Hospital Course Summary Disclaimer: The visit summary below is not to be considered part of the above Progress Note. Hospital Course: 08/05/16 Admit patient to outpatient observation to the ICU under the care of Dr. Lopez for intentional overdose, suicide attempt. Patient on suicide precautions. Monitor patient on cardiac telemetry. Will monitor Accu-Cheks every hour. Will obtain serial BMP and ABGs to monitor for acidosis. Next scheduled lab draw at 1600 Start patient on D5 normal saline at 100 ML per hour for ongoing hydration and additional dextrose supplementation. An amp of D50 is available as needed for acute hypoglycemia This patient on a carb consistent diet. Hold metformin and Levemir currently. Zofran available as needed for nausea. Protonix 40 mg IV daily for GI protection SCDs to bilateral lower extremity for DVT prophylaxis Johnson acidosis compensation predictor formula indicates, expected CO2 compensation will be 38-42. Will monitor carefully. Will hold patient overnight and monitor him carefully. Once he is medically stable, we will be able to contact per review to have a psychiatric screen completed. Patient does verbalize that he needs help and recognizes that if he is discharged, he will likely attempt suicide again. <Karthikeyan Lopez D - Last Filed: 08/05/16 16:32> History of Present Illness Date: 08/05/16 Exam Vital Signs: Temperature 98.4 F 08/05/16 15:04 Pulse Rate 84 08/05/16 15:04 Respiratory Rate 12 08/05/16 15:04 Blood Pressure 118/70 08/05/16 15:04 Pulse Oximetry 98 08/05/16 15:04 Oxygen Delivery Method Room Air Height: 1.83 m Weight: 92.6 kg Results - Labs CBC & Chem 7: 08/05/16 12:48 08/05/16 15:02 Assessment and Plan (1) Intentional overdose of drug in tablet form Current visit: Yes Status: Acute (2) Suicide attempt by drug ingestion Current visit: Yes Status: Acute (3) Type II diabetes mellitus Current visit: Yes Status: Chronic (4) Hypertension Current visit: Yes Status: Chronic (5) Bipolar 1 disorder Current visit: Yes Status: Chronic (6) PTSD (post-traumatic stress disorder) Current visit: Yes Status: Chronic GI Prophylaxis: Protonix Resuscitation Status: Full Code Assessment and Plan: Have independently interviewed and examined pt. 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 Care plan developed with my supervision; agree with above. Increase social stress-mood very strained. Intentionally took 34 grams of metformin in attempt to hurt self. Had prior Hx of suicide attempts and treatment. Increased nausea since taking med. Stools usually on looser side with his chronic metformin use. Has been having frontal MARIE past several days-no sinus/nasal congestion. Breathing stable without increased SOA or congestion; minor cough which he attributes to his smoking. No chest pressures or pain. Denies muscle pain or weakness. Has been urinating well. Previously, appetite stable. Lungs: clear CV: regular Ext: no edema, SCD in place Neuro: CN II-XII intact, no focal motor deficits. Skin: warm and dry Psych: awake alert thoughts linear. Plan: OBS. CCU care for 1 on 1 monitoring due to suicide attempt. IVF for hydration and volume support. Control nausea. Tele to monitor HR, watching for bradycardia. Monitor urine output and renal status. PV eval when medically stable. Hospital Course Summary Disclaimer: The visit summary below is not to be considered part of the above Progress Note.
[2016-08-05] MEDS ORDERED: D5NS 1,000 ML IV SCH (15:00)
[2016-08-05] MEDS ORDERED: NICOTINE 21 MG PATCH TD SCH (15:17)
[2016-08-05] MEDS ORDERED: ONDANSETRON 4 MG/2 ML INJECTION IVP PRN (15:28)
[2016-08-05] MEDS: PANTOPRAZOLE 40 MG INJECTION IVP SCH (15:34)
[2016-08-05] MEDS ORDERED: PROMETHAZINE 25 MG INJECTION IVP PRN (16:04)
[2016-08-05] MEDS: ACETAMINOPHEN 325 MG TABLET PO PRN (16:30)
[2016-08-05 16:41] VITALS: BMI 27.3
[2016-08-05] MEDS: D5NS 1,000 ML IV SCH ×2 (17:16→22:42)
[2016-08-05] MEDS: ONDANSETRON 4 MG/2 ML INJECTION IVP PRN (22:49)
[2016-08-06] MEDS: D5NS 1,000 ML IV SCH ×2 (05:52→13:20)
[2016-08-06] MEDS ORDERED: HYDROMORPHONE 2 MG/ML INJECTION IVP ONE (10:48)
[2016-08-06] MEDS: PANTOPRAZOLE 40 MG INJECTION IVP SCH (11:18)
--- NOTE | 2016-08-06 15:07 | Progress Note ---
Subjective: F/U: Meformin overdose, Type II DM, HTN Doing better today. Nausea decreased. Able to eat and drink well. Not having loose stool-denies ab pain or ab cramping. Breathing well-not SOA or congested. No chest pressure or pain. Urine output increasing. Blood sugars increasing. HR and BP stable. Ambulating well. No f/c. Objective Vital signs: Temperature 97.7 F 08/06/16 10:00 Pulse Rate 77 08/06/16 12:00 Respiratory Rate 22 08/06/16 12:00 Blood Pressure 135/88 08/06/16 12:00 Pulse Oximetry 97 08/06/16 12:00 Oxygen Delivery Method Room Air Rhythm: Normal Sinus Rhythm Weight: 94.8 kg - Constitutional Present: no acute distress, well nourished, well developed, cooperative - Routine HEENT Exam Head: Present: normocephalic, atraumatic Eye: Present: EOMI, PERRL. Absent: conjunctival icterus ENT: Present: mucous membranes moist, nares patent - Routine Respiratory Exam Present: CTA bilaterally. Absent: respiratory distress, rhonchi, wheezes, crackles - Routine Cardiovascular Exam Present: RRR, no murmur - Routine Abdominal Exam Present: soft, normoactive bowel sounds, non distended, non tender. Absent: rebound, guarding - Routine Extremities Exam Present: no edema, pulses intact. Absent: cyanosis, clubbing - Routine Musculoskeletal Exam Musculoskeletal: Present: no clubbing or cyanosis, normal strength, no joint swelling - Routine Skin Exam Present: intact, dry, warm, normal turgor. Absent: pallor, mottling - Routine Neurological Exam Present: alert, oriented X3, CN II-XII intact, vision grossly intact, hearing grossly intact. Absent: motor deficit - Routine Psychiatric Exam Present: normal affect, normal thought process, cooperative. Absent: anxious, agitated, paranoid Results - Labs CBC & Chem 7: 08/06/16 04:21 08/06/16 04:21 - ABG Interpretation ABG results: 08/05/16 08/05/16 16:15 16:15 ABG pH Cancelled ABG pCO2 Cancelled ABG pO2 Cancelled ABG HCO3 Cancelled ABG Total CO2 Cancelled ABG O2 Saturation Cancelled ABG Base Excess Cancelled VBG pH 7.317 VBG pCO2 40.6 VBG pO2 30 L VBG HCO3 21 L VBG Total CO2 22 VBG O2 Saturation 52.0 VBG Base Excess -5.0 L Assessment and Plan (1) Intentional overdose of drug in tablet form Problem details: Metformin - took 34 grams. Current visit: Yes Status: Acute (2) Suicide attempt by drug ingestion Current visit: Yes Status: Acute (3) Leukopenia Problem details: POA Current visit: Yes Status: Resolved (4) Type II diabetes mellitus Current visit: Yes Status: Chronic (5) Hypertension Current visit: Yes Status: Chronic (6) Dyslipidemia Current visit: Yes Status: Chronic (7) Bipolar 1 disorder Current visit: Yes Status: Chronic (8) PTSD (post-traumatic stress disorder) Current visit: Yes Status: Chronic (9) Polysubstance abuse Problem details: Positive for meth and cannabinoids at admission. Current visit: Yes Status: Chronic (10) Tobacco abuse Current visit: Yes Status: Chronic DVT Prophylaxis: SCD's GI Prophylaxis: Protonix Resuscitation Status: Full Code Assessment and Plan: Continue CCU care due to suicide attempt - needs continue close one-on-one monitoring. [facility] was out and did screening evaluations - working on getting inpatient treatment arrangements made. Will continue with IVF to support - will help excrete metformin. As blood sugars are increasing - will change to NS and decrease rate to 125cc /hr. Majority of metformin should be out of his system by now, but would not restart metformin at this time. Restart home Lantus tonight at 20 units. With likelihood of hypoglycemia decreasing, will decrease blood sugar checks to ac, hs, and prn. Hold PATTI due to metformin overdose to decrease risk of renal impairment and hypotension. BP, HR, and renal status stable currently. Hold home statin due to metformin OD to decrease risk for liver irritation and elevation of liver enzymes. Did give pt a one time dose of Dilaudid for his MARIE. Continue Tylenol prn discomfort. Recheck CMP in am due to metformin OD. Will check CBC due to recent leukopenia. Magnesium check in am secondary to IVF use. Medically improving - feel should be able to safely discharge pt to psychiatric facility whenever arrangements are made. Case discussed with CCU nursing. Time spent with patient care 25 minutes. Sepsis Assessment - Evaluation Sepsis screening result: No Definite Risk Hospital Course Summary Disclaimer: The visit summary below is not to be considered part of the above Progress Note. Hospital Course: 08/05/16 Admit patient to outpatient observation to the ICU under the care of Dr. Lopez for intentional overdose, suicide attempt. Patient on suicide precautions. Needs close one-on-one monitoring due to suicide attempt. Requires CCU monitoring due to hospital policy. Monitor patient on cardiac telemetry - potential bradycardia a concern. Will monitor Accu-Cheks every hour to monitor for potential hypoglycemia due to metformin overdose. Hold lisinopril as metformin overdose can potentially cause hypotension. Will obtain serial BMP and ABGs to monitor for acidosis. Next scheduled lab draw at 1600. Start patient on D5 normal saline at 100 ML per hour for ongoing hydration and additional dextrose supplementation. An amp of D50 is available as needed for acute hypoglycemia. This patient on a carb consistent diet. Hold metformin and Levemir currently. Zofran available as needed for nausea. Protonix 40 mg IV daily for GI protection. SCDs to bilateral lower extremity for DVT prophylaxis. Johnson acidosis compensation predictor formula indicates, expected CO2 compensation will be 38-42. Will monitor carefully. Will hold patient overnight and monitor him carefully. Once he is medically stable, we will be able to contact [facility] to have a psychiatric screen completed. Patient does verbalize that he needs help and recognizes that if he is discharged, he will likely attempt suicide again. 08/06/16 Doing better today. Nausea decreased. Able to eat and drink well. Not having loose stool-denies ab pain or ab cramping. Breathing well-not SOA or congested. No chest pressure or pain. Urine output increasing. Blood sugars increasing. HR and BP stable. Ambulating well. No f/c. Lab improving. Sodium and potassium normal. Liver enzymes without elevation. Creatinine without elevation. TSH normal at 2.25. A1c elevated at 10.6. Continue CCU care due to suicide attempt - needs continue close one-on-one monitoring. [facility] Collier was out and did screening evaluations - working on getting inpatient treatment arrangements made. Will continue with IVF to support - will help excrete metformin. As blood sugars are increasing - will change to NS and decrease rate to 125cc /hr. Majority of metformin should be out of his system by now, but would not restart metformin at this time. Restart home Lantus tonight at 20 units. As likelihood for hypoglycemia resolved, decrease blood sugar monitoring to ac, hs, and prn. Hold PATTI due to metformin overdose to decrease risk of renal impairment and hypotension. BP, HR, and renal status stable currently. Hold home statin due to metformin OD to decrease risk for liver irritation and elevation of liver enzymes. Did give pt a one time dose of Dilaudid for his MARIE. Continue Tylenol prn discomfort. Recheck CMP in am due to metformin OD-monitor renal and LFT. Will check CBC due to recent leukopenia. Magnesium check in am secondary to IVF use. Medically improving - feel should be able to safely discharge pt to psychiatric facility whenever arrangements are made.
[2016-08-06] MEDS: NICOTINE PATCH REMOVAL TD SCH (15:25)
[2016-08-06] MEDS: NICOTINE 21 MG PATCH TD SCH (15:25)
[2016-08-06] MEDS: NS 1,000 ML IV SCH (19:52)
[2016-08-06] MEDS ORDERED: INSULIN DETEMIR 100unit/ml INJECTION SQ SCH (22:00)
[2016-08-07] MEDS: NS 1,000 ML IV SCH ×4 (04:42→22:44)
[2016-08-07] MEDS ORDERED: LORazepam 1 MG TABLET PO ONE (09:00)
[2016-08-07] MEDS: PANTOPRAZOLE 40 MG INJECTION IVP SCH (09:15)
--- NOTE | 2016-08-07 13:21 | Progress Note ---
Subjective: Henrry complains of anxiety today indicating he was previously on Celexa which he's been out of recently. He's used lorazepam as well in the past. He's apprehensive about where he'll live after discharge after learning that his roommate intends to throw him out. He denied dyspnea, palpitations, or lightheadedness. He's had some minor nausea but his appetite is good. He complains of some back discomfort which she attributes to prior low back surgery and sleeping in a hospital bed. When asked about his mood he returns to anxiety; when asked about suicidal thoughts he indicated that he doesn't think he would try to harm himself today but acknowledged that he is in the hospital and that if he was out of the hospital he might feel differently. Objective Vital signs: Temperature 98.5 F 08/07/16 12:00 Pulse Rate 56 L 08/07/16 12:00 Respiratory Rate 23 08/07/16 12:00 Blood Pressure 141/87 H 08/07/16 12:00 Pulse Oximetry 99 08/07/16 12:00 Oxygen Delivery Method Room Air EXAM General-NAD, alert, cooperative, fluent speech HEENT-conjunctiva clear, sclera anicteric, extraocular muscles intact, mild right ptosis, oropharynx clear Lungs-respirations nonlabored, good airflow, breath sounds clear Cardiac-regular rhythm, S1-S2 Abd-soft, nontender, bowel sounds present Ext-without edema Neuro-moving all extremities spontaneously/symmetrically Psych-anxious, slightly withdrawn - Weight: 99.3 kg Results - Labs CBC & Chem 7: 08/07/16 05:27 08/07/16 05:27 Labs: Liver enzymes normal - ABG Interpretation ABG results: 08/05/16 08/05/16 16:15 16:15 ABG pH Cancelled ABG pCO2 Cancelled ABG pO2 Cancelled ABG HCO3 Cancelled ABG Total CO2 Cancelled ABG O2 Saturation Cancelled ABG Base Excess Cancelled VBG pH 7.317 VBG pCO2 40.6 VBG pO2 30 L VBG HCO3 21 L VBG Total CO2 22 VBG O2 Saturation 52.0 VBG Base Excess -5.0 L Assessment and Plan (1) Intentional overdose of drug in tablet form Problem details: Metformin - took 34 grams. Current visit: Yes Status: Acute (2) Suicide attempt by drug ingestion Current visit: Yes Status: Acute (3) Type II diabetes mellitus Current visit: Yes Status: Chronic (4) Hypertension Current visit: Yes Status: Chronic (5) Bipolar 1 disorder Current visit: Yes Status: Chronic (6) PTSD (post-traumatic stress disorder) Current visit: Yes Status: Chronic (7) Dyslipidemia Current visit: Yes Status: Chronic (8) Tobacco abuse Current visit: Yes Status: Chronic (9) Polysubstance abuse Problem details: Positive for meth and cannabinoids at admission. Current visit: Yes Status: Chronic (10) Leukopenia Problem details: POA Current visit: Yes Status: Resolved (11) Anxiety Current visit: Yes Status: Acute Assessment and Plan: Continue CCU care due to suicide attempt - needs continue close one-on-one monitoring. Transfer to psychiatric facility pending; patient distressed today regarding loss of housing. Reports potential to inflict self-harm in the future. Lorazepam initiated for anxiety pending further psychiatric evaluation. Decrease rate of IV fluids, can discontinue when accepted for transfer to psychiatry. Mild hyperglycemia present, Lantus increased to 22 units. Metformin on hold- remains within 5 half-lives metformin ingestion and will continue to hold for 2 additional days. Resume lisinopril at 20 mg daily, resume losartan at 20 mg daily-reported by patient to be home dose. Platelet count and white count borderline low-patient reports not being told of either hematologic abnormality in the past. No records available here previously other than comparable values in 07/22. Defer to PCP to evaluate further. Patient continues to require intensive monitoring due to ongoing psychiatric risk-inpatient status. Discussed with nursing and case management. Old records (ER/lab) reviewed. Sepsis Assessment - Evaluation Sepsis screening result: No Definite Risk Hospital Course Summary Disclaimer: The visit summary below is not to be considered part of the above Progress Note. Hospital Course: 08/05/16 Admit patient to outpatient observation to the ICU under the care of Dr. Lopez for intentional overdose, suicide attempt. Patient on suicide precautions. Needs close one-on-one monitoring due to suicide attempt. Requires CCU monitoring due to hospital policy. Monitor patient on cardiac telemetry - potential bradycardia a concern. Will monitor Accu-Cheks every hour to monitor for potential hypoglycemia due to metformin overdose. Hold lisinopril as metformin overdose can potentially cause hypotension. Will obtain serial BMP and ABGs to monitor for acidosis. Next scheduled lab draw at 1600. Start patient on D5 normal saline at 100 ML per hour for ongoing hydration and additional dextrose supplementation. An amp of D50 is available as needed for acute hypoglycemia. This patient on a carb consistent diet. Hold metformin and Levemir currently. Zofran available as needed for nausea. Protonix 40 mg IV daily for GI protection. SCDs to bilateral lower extremity for DVT prophylaxis. Johnson acidosis compensation predictor formula indicates, expected CO2 compensation will be 38-42. Will monitor carefully. Will hold patient overnight and monitor him carefully. Once he is medically stable, we will be able to contact [facility] to have a psychiatric screen completed. Patient does verbalize that he needs help and recognizes that if he is discharged, he will likely attempt suicide again. 08/06/16 Doing better today. Nausea decreased. Able to eat and drink well. Not having loose stool-denies ab pain or ab cramping. Breathing well-not SOA or congested. No chest pressure or pain. Urine output increasing. Blood sugars increasing. HR and BP stable. Ambulating well. No f/c. Lab improving. Sodium and potassium normal. Liver enzymes without elevation. Creatinine without elevation. TSH normal at 2.25. A1c elevated at 10.6. Continue CCU care due to suicide attempt - needs continue close one-on-one monitoring. [facility] was out and did screening evaluations - working on getting inpatient treatment arrangements made. Will continue with IVF to support - will help excrete metformin. As blood sugars are increasing - will change to NS and decrease rate to 125cc /hr. Majority of metformin should be out of his system by now, but would not restart metformin at this time. Restart home Lantus tonight at 20 units. As likelihood for hypoglycemia resolved, decrease blood sugar monitoring to ac, hs, and prn. Hold PATTI due to metformin overdose to decrease risk of renal impairment and hypotension. BP, HR, and renal status stable currently. Hold home statin due to metformin OD to decrease risk for liver irritation and elevation of liver enzymes. Did give pt a one time dose of Dilaudid for his MARIE. Continue Tylenol prn discomfort. Recheck CMP in am due to metformin OD-monitor renal and LFT. Will check CBC due to recent leukopenia. Magnesium check in am secondary to IVF use. Medically improving - feel should be able to safely discharge pt to psychiatric facility whenever arrangements are made. 08/07/16 13:42 Tolerating by mouth well. Lisinopril and losartan resumed. Lantus dose increased to 22 units; metformin remains on hold for an additional 2 days. Rate of IV fluids decreased, can be discontinued when excepted for inpatient psychiatry. Lorazepam added for increased anxiety.
[2016-08-07] MEDS ORDERED: INSULIN DETEMIR 100unit/ml INJECTION SQ SCH (13:32)
[2016-08-07] MEDS: NICOTINE PATCH REMOVAL TD SCH (14:17)
[2016-08-07] MEDS: NICOTINE 21 MG PATCH TD SCH (14:17)
[2016-08-07] MEDS: LORazepam 1 MG TABLET PO PRN ×3 (14:18→23:48)
--- NOTE | 2016-08-07 16:23 | Discharge Instructions ---
Discharge Plan - Med Rec/Dispo Prescriptions: New Lovastatin [Mevacor] 20 mg PO HS tablet Nicotine Patch [Nicoderm] 21 mg TD Q24H patch Lisinopril [Prinivil] 20 mg PO HS tablet Metformin [Glucophage] 1 tab PO BIDWM #60 tab Continue Paliperidone Sustenna [Invega Sustenna] 234 mg IM 1 MONTH Acetaminophen 650 mg PO PRN Changed Insulin Detemir [Levemir] 22 unit SQ HS #0 Discontinued Metformin HCl 1,000 mg PO BIDWM #0 Lisinopril 40 mg PO HS Lovastatin Discharge Instructions/Outpatient Orders: Final Provider Discharge Instructions Location: Determined By Patient - Disposition 65 To Psych Hosp/Unit
--- NOTE | 2016-08-07 16:40 | Discharge Summary ---
Discharge Information Date of admission: 08/07/16 11:50 Anticipated date of discharge: 08/07/16 Attending Physician: Sierra Frank MD Primary care physician: MINA MCLAIN Consults: Psychiatric screen-[facility] - Discharge Diagnosis (1) Intentional overdose of drug in tablet form Problem Details: Metformin - took 34 grams. Status: Acute (2) Suicide attempt by drug ingestion Status: Acute (3) Type II diabetes mellitus Qualifiers: Diabetes mellitus complication status: with hyperglycemia Status: Chronic (4) Hypertension Qualifiers: Hypertension type: essential hypertension Qualified Code(s): I10 - Essential (primary) hypertension Status: Chronic (5) Bipolar 1 disorder Status: Chronic (6) PTSD (post-traumatic stress disorder) Status: Chronic (7) Dyslipidemia Status: Chronic (8) Tobacco abuse Status: Chronic (9) Polysubstance abuse Problem Details: Positive for meth and cannabinoids at admission. Status: Chronic (10) Leukopenia Qualifiers: Leukopenia type: unspecified Qualified Code(s): D72.819 - Decreased white blood cell count, unspecified Problem Details: POA Status: Resolved (11) Anxiety Status: Acute - Laboratory Labs: White count on admission 3.9 with hemoglobin 16.9 and platelet count 134. At discharge white count 4.4, hemoglobin 15.1, platelet count 81,000. Electrolytes unremarkable, creatinine 1.1 admission improving to 0.8 at discharge. Hemoglobin A1c 10.6. Liver enzymes unremarkable throughout the admission. TSH 2.251 08/06/16. Urine drug screen positive for methamphetamine and marijuana. Acetaminophen and salicylates were not detected; alcohol nondetected. History of Present Illness HPI: Henrry is a 40-year-old male who was brought to the emergency room by EMS today for acute evaluation following an intentional overdose of metformin. Patient has had a history of depression with suicide attempt in the past. In May he took an entire bottle of BuSpar and was managed in the outpatient setting. He reports since that time his mental health, has not improved because he "Bull shitted" his way through therapy. He describes having increased stress with his marriage and elastic situation. Today he decided to Intentionally take 34 tablets of metformin 1000 milligrams each at approximately 1230. In the emergency room further evaluation was completed. WBC count 3.9, RBCs 5.37 , hemoglobin 16.9, hematocrit 47.8, platelet count 134. Sodium is 136, potassium 4.2, BUN 19, creatinine 0.9. Initial BGM is 309 and recheck BGM at 1345 was 232. ABG did reveal a pH of 7.330, pCO2 40, pO2 79, bicarbonate 21. A urinalysis was obtained showing 3+ glucose, otherwise unremarkable. Urine drug screen is positive for amphetamines, methamphetamines and marijuana. Salicylate , acetaminophen are negative. Given the intentional overdose, accompanied with risk of side effects of metformin overdose. The hospitalist services were contacted and accepted patient for outpatient admission for further evaluation and treatment. Hospital Course This is a general summary of the patient's hospital course. For more details refer to the complete medical record. Hospital course: Patient was admitted to the intensive care unit under the care of Dr. Lopez after intentional overdose with metformin. Suicide precautions were initiated on admission and he was monitored by nursing one-on-one. Home medications were held on admission and hourly blood sugars were monitored due to risk of hypoglycemia which did not occur. Minor bradycardia was noted that no hypotension or other high risk complications of metformin ingestion evolved. Metformin remains on hold at discharge with recommendation that he be held through 08/09 at which time it can be resumed at usual dose of 1 g twice a day. Diabetic diet was initiated and subsequently home dose Levemir 20 units at bedtime was initiated. Mild hyperglycemia was present on 08/07 and Levemir dose was increased to 22 units at bedtime. Psychiatric screen was completed by [facility] and further inpatient psychiatric care was recommended. Patient was accepted for transfer to inpatient psychiatric care at [facility] on 08/07. Lisinopril was resumed at 20 mg prior to transfer and home dose of lovastatin was resumed prior to transfer as well. Mild neutropenia and thrombocytopenia were noted during the hospitalization, no past records are available and patient was referred back to his primary care physician following hospitalization for further assessment. Anxiety was managed with lorazepam during the hospitalization-this was not continued at discharge as all psychiatric medications will be deferred to the psychiatric team accepting patient's care. Please refer to progress note earlier today for details of today's care. Time spent with patient: Greater than 35 minutes Discharge Plan - Med Rec/Dispo Additional Instructions: Resume metformin on Sunday, August 09. Monitor Accu-Cheks fasting and 2 hours after meals. Prescriptions: New Lovastatin [Mevacor] 20 mg PO HS tablet Nicotine Patch [Nicoderm] 21 mg TD Q24H patch Lisinopril [Prinivil] 20 mg PO HS tablet Metformin [Glucophage] 1 tab PO BIDWM #60 tab Continue Paliperidone Sustenna [Invega Sustenna] 234 mg IM 1 MONTH Acetaminophen 650 mg PO PRN Changed Insulin Detemir [Levemir] 22 unit SQ HS #0 Discontinued Metformin HCl 1,000 mg PO BIDWM #0 Lisinopril 40 mg PO HS Lovastatin Discharge Instructions/Outpatient Orders: Final Provider Discharge Instructions Location: Determined By Patient - Disposition 65 To Psych Hosp/Unit
[2016-08-07] MEDS: ACETAMINOPHEN 325 MG TABLET PO PRN (17:25)
[2016-08-07] MEDS ORDERED: HYDROCODONE/APAP 5mg/325mg TABLET PO PRN (19:41)
[2016-08-07] MEDS ORDERED: HYDROMORPHONE 2 MG/ML INJECTION IVP ONE (21:10)
[2016-08-07] MEDS: ONDANSETRON 4 MG/2 ML INJECTION IVP PRN (21:34)
[2016-08-07] MEDS ORDERED: LOVASTATIN 20 MG TABLET PO SCH (22:00)
[2016-08-07] MEDS ORDERED: LISINOPRIL 40 MG TABLET PO SCH (22:00)
[2016-08-08] MEDS ORDERED: OMEPRAZOLE 20 MG CAPSULE PO SCH (06:30)
[2016-08-08] MEDS: LORazepam 1 MG TABLET PO PRN (08:11)
[2016-08-08] MEDS: ACETAMINOPHEN 325 MG TABLET PO PRN (08:44)
[2016-08-08 13:45] VITALS: BP 148/79; PULSE 51; RESP 21; TEMP 97.3; O2SAT 99
== END 2016-08-08 09:15 | disposition home or self-care (01) | DRG 918 ==
LOC: ED 13:02 → CCU 13:02
PROVIDERS: ADMIT Hospitalist; ATTEND Internal Medicine